=== PATIENT | male | born 1995 | race Caucasian/White ===

== ENCOUNTER 2016-12-29 01:32 | Emergency (ER) | payer BC ==
[~2016-12-29] VITALS: Ht 175.3 cm; Wt 69.0 kg
[2016-12-29 02:23] LABS: POINT-OF-CARE METER ID UU14100415
[2016-12-29 03:14] LABS: HEMATOCRIT 44.4 % (38.0-50.0); MCH 30.9 PG (29.0-34.0); MCHC 35.6 G/DL (30.0-36.0); MCV 86.9 FL (86-99); MEAN PLAT.VOLUME 9.9 uM^3 (9.0-12.4); PLATELET COUNT 255 K/uL (156-360); RBC DIS.WIDTH-CV 12.4 % (11.8-14.6); RBC DIS.WIDTH-SD 39.7 % (39-53); RED BLOOD COUNT 5.11 M/uL (4.00-5.50)
[2016-12-29 03:19] LABS: INTER. NORMALIZED RATIO 1.1; PROTHROMBIN TIME 12.2 SEC (10.2-12.9)
[2016-12-29 03:22] LABS: PTT 30.4 SEC (25-37)
[2016-12-29 03:26] LABS: CHLORIDE 106 mEq/L (99-109); POTASSIUM 3.4 mEq/L (3.7-5.4); SODIUM 140 mEq/L (136-147)
[2016-12-29 03:28] LABS: GLUCOSE 97 mg/dL (70-99)
[2016-12-29 03:29] LABS: ANION GAP 13 MEQ/L (2-14)
[2016-12-29 03:32] LABS: GFR ESTIMATE (CALCULATED) > 59 mL/min/
[2016-12-29 03:33] LABS: UREA NITROGEN (BUN) 16 mg/dL (9-23)
[2016-12-29 03:35] LABS: TROP-I INTERPRETATION NEGATIVE; TROPONIN-I < 0.01 ng/mL (0.0-0.30)
[2016-12-29 04:05] VITALS: BP 107/86
== END 2016-12-29 04:04 | disposition home or self-care (01) ==
LOC: EME 01:32
PROVIDERS: Emergency Medicine
DX: R55 Syncope and collapse (principal)
CPT/HCPCS: 71020; 80048; 82948; 83880; 84484; 85027; 85610; 85730; 93005; 99281; 99284

== ENCOUNTER 2017-06-28 18:18 | Emergency (ER) | payer BC ==
[~2017-06-28] VITALS: Ht 175.3 cm; Wt 91.0 kg
[2017-06-28 18:39] VITALS: BP 136/76
== END 2017-06-28 21:52 | disposition left against medical advice (07) ==
LOC: EME 18:18
DX: F32.9 Major depressive disorder, single episode, unspecified (principal); Z53.21 Procedure and treatment not carried out due to patient leaving prior to being seen by health care provider